=== PATIENT | female | born 1960 | race Caucasian/White ===

== ENCOUNTER 2018-09-13 16:52 | Emergency (ER) | payer OTHER ==
[~2018-09-13] VITALS: Ht 162.6 cm; Wt 122.7 kg
[2018-09-13 17:24] LABS: GLUCOSE,POINT OF CARE 100 MG/DL (70-110)
[2018-09-13] MEDS ORDERED: LATA2.5D2 OU (17:42)
[2018-09-13] MEDS ORDERED: CEPH500 PO (17:47)
[2018-09-13] MEDS ORDERED: TIMO.25OS OS (17:47)
[2018-09-13 20:58] LABS: BASOPHILS % (AUTO) 0.6 % (0.0-2.0); EOSINOPHILS % (AUTO) 1.3 % (1.0-6.0); HEMOGLOBIN 12.5 g/dL (12.0-16.0); LYMPHOCYTES # (AUTO) 1.6 K/uL (1.0-4.8); LYMPHOCYTES % (AUTO) 25.6 % (22.0-44.0); MEAN CORPUSCULAR HGB CONC 32.8 G/dL (31.0-37.0); MEAN CORPUSCULAR VOLUME 86 fL (80-100); MONOCYTES # (AUTO) 0.5 K/uL (0.1-1.0); MONOCYTES % (AUTO) 7.7 % (2.0-9.0); NEUTROPHILS % (AUTO) 64.8 % (40.0-70.0); PLATELET COUNT (AUTO) 302 K/uL (150-450); RED BLOOD CELL COUNT(AUTO) 4.44 MIL/uL (4.00-5.20); RED CELL DISTRIBUTION WIDTH 14.8 % (11.5-14.5)
[2018-09-13 21:08] LABS: ANION GAP 6 mmol/L (8-16); CALCIUM, TOTAL 9.4 mg/dL (8.8-10.5); CARBON DIOXIDE 29 mmol/L (22-29); CHLORIDE 105 mmol/L (98-107); CREATININE 0.65 mg/dL (0.60-1.30); GLOMERULAR FILTR. RATE CALC > 60 mL/min (>60); GLUCOSE,RANDOM 77 mg/dL (70-110); POTASSIUM 4.1 mmol/L (3.5-5.1); SODIUM SERUM 140 mmol/L (136-145); UREA NITROGEN, BLOOD 21 mg/dL (7-18)
[2018-09-13 21:14] LABS: ALANINE AMINOTRANSFERASE 24 U/L (12-78); ALBUMIN 3.5 g/dL (3.4-5.0); ALKALINE PHOSPHATASE 118 U/L (46-116); ASPARTATE AMINOTRANSFERASE 17 U/L (15-37); BILIRUBIN,TOTAL 0.4 mg/dL (0.1-1.0); C-REACTIVE PROTEIN QUANT 0.79 mg/dL (0.00-0.30); TOTAL PROTEIN, SERUM 7.2 g/dL (6.4-8.2)
[2018-09-13] MEDS ORDERED: CLINDAMYCIN 600 MG/D5% WATER 50 ML IV ONE (21:30)
[2018-09-13] MEDS ORDERED: CefTRIAXone 1 GM/DEXTROSE 50 ML IV ONE (21:30)
[2018-09-13 22:23] LABS: ERYTHROCYTE SEDIMENTATION RATE 43 MM/HR (0-20)
[2018-09-13 23:36] VITALS: BP 144/61
== END 2018-09-13 23:35 | disposition home or self-care (01) ==
LOC: EMS 16:54
DX: L03.116 Cellulitis of left lower limb (principal); L03.115 Cellulitis of right lower limb; Z88.5 Allergy status to narcotic agent; Z88.6 Allergy status to analgesic agent; Z88.8 Allergy status to other drugs, medicaments and biological substances; Z79.899 Other long term (current) drug therapy
CPT/HCPCS: 36415; 80053; 82962; 85025; 85651; 86140; 87040; 87070; 87077; 87186; 87205; 93970; 96365; 96366; 96368; 99284; J0696; J3490